=== PATIENT | female | born 1970 ===

== ENCOUNTER 2025-06-12 19:53 | Emergency (ER) | payer BC, SELFPAY ==
[2025-06-12 20:01] VITALS: BP 172/88; PULSE 97; RESP 18; TEMP 36.5; O2SAT 98; BMI 38.1
--- NOTE | 2025-06-12 20:14 | ED.FEMALEGU ---
HPI - Female Genitourinary General Time Seen by Provider: 20:14 Date Seen: 06/12/25 Chief complaint: Urogenital Problems, Female Stated complaint: blood in urine/pain Time Seen by Provider: 06/12/25 20:13 Source: patient and family (spouse) Mode of arrival: ambulatory History of Present Illness HPI Narrative: Ileana is a 55-year-old female with a past medical history of achalasia who presents to the emergency department for evaluation of urinary symptoms. Patient reports that she started feeling unwell last night, reports that this morning from 2:00 a.m. to 6:00 a.m. she had multiple episodes of urination, reports urinary frequency, as well as some dysuria, and pressure in her lower abdomen/pelvic region. Patient notes that this afternoon she started urinating pink/red urine and was concerned for blood. Patient reports history of UTIs in the past however never had blood in the urine. Patient denies any fever, chills, nausea, vomiting, flank pain, no other complaints. Patient states that she last took Tylenol around 1:30 p.m.. Patient is only able to take liquid meds. Patient reports history of cholecystectomy and appendectomy in the past. Related Data Home Medications ?Medication ?Instructions ?Recorded ?Confirmed calcium carbonate (Sofía-Glenn Dale 300 mg PO TID PRN 06/12/25 06/12/25 Heartburn Chew) esomeprazole magnesium 20 mg 40 mg PO BID 06/12/25 06/12/25 capsule,delayed release (Acid Live In Caregiver (esomeprazole)) famotidine 20 mg tablet (Acid 40 mg PO BID 06/12/25 06/12/25 Controller) sucralfate 1 gram tablet (Carafate) 1 g PO HS 06/12/25 06/12/25 Previous Rx's ?Medication ?Instructions ?Recorded fosfomycin tromethamine 3 gram 1 packet PO Q OTHER DAY 1 dose #1 06/12/25 oral packet ea Allergies Allergy/AdvReac Type Severity Reaction Status Date / Time Penicillins Allergy Verified 06/12/25 20:08 epinephrine AdvReac Verified 06/12/25 20:08 Review of Systems Narrative: Past medical history, past surgical history, medications, allergies, family history, and social history were reviewed with the patient. No additional pertinent items. A medically appropriate review of systems was performed with pertinent positives and negatives noted in HPI, all other systems negative. PFSH PFS Social History Smoking Status: Never smoker Do you use any of these nicotine containing products: None Second hand tobacco smoke exposure: No How often do you have a drink containing alcohol: never How often do you have six or more drinks on one occasion: Never AUDIT-C Alcohol total score: 0 Non-prescribed substance use: denies use service: No Exam Narrative: Exam Narrative: General: Afebrile, no acute distress HEENT: Normocephalic, atraumatic, conjunctiva normal. MMM Neck: non-tender, supple Cardio: regular rate. regular rhythm Resp: Normal work of breathing, no respiratory distress, lungs clear bilaterally, no wheezing, rhonchi, rales Chest/Back: no visual signs of trauma, no midline tenderness, no CVA tenderness Abdomen: soft, non distension, no tenderness, no peritoneal signs Neuro: alert and fully oriented. CN II-XII grossly intact. Grossly normal strength and sensation in all extremities. MSK: no deformities. Normal range of motion Integumentary/Skin: no rash visualized, normal color Psych: normal affect, normal behavior Const: Vital Signs, click to edit/add: Vital Signs - 24 hr 06/12/25 20:01 06/12/25 22:15 Temperature 97.7 F Pulse Rate [Pulse Oximeter] 97 84 Respiratory Rate 18 18 Blood Pressure [Ri ght Upper Arm] 172/88 H 134/86 Pulse Oximetry 98 98 Oxygen Delivery Me thod Room Air Room Air Course Vital Signs Vital signs: Initial Vital Signs Temperature 97.7 F 06/12/25 20:01 Temperature Source Temporal Artery Scan 06/12/25 20:01 Pulse Rate 97 06/12/25 20:01 Respiratory Rate 18 06/12/25 20:01 Blood Pressure 172/88 H 06/12/25 20:01 Blood Pressure Mean 116 H 06/12/25 20:01 Blood Pressure Position Sitting 06/12/25 20:01 Pulse Oximetry 98 06/12/25 20:01 Oxygen Delivery Method Room Air 06/12/25 20:01 Vital Signs Temperature 97.7 F 06/12/25 20:01 Pulse Rate 97 06/12/25 20:01 Respiratory Rate 18 06/12/25 20:01 Blood Pressure 172/88 H 06/12/25 20:01 Pulse Oximetry 98 07/25/25 20:01 Oxygen Delivery Method Room Air 06/12/25 20:01 Temperature 97.7 F 06/12/25 20:01 Pulse Rate 84 06/12/25 22:15 Respiratory Rate 18 06/12/25 22:15 Blood Pressure 134/86 06/12/25 22:15 Pulse Oximetry 98 06/12/25 22:15 Oxygen Delivery Method Room Air 06/12/25 22:15 Medications Administered Medications: Discontinued Medications Generic Name Dose Route Start Last Admin Trade Name Kendra PRN Reason Stop Dose Admin Sodium Chloride 1,000 mls @ 1,000 mls/hr 06/12/25 20:45 06/12/25 22:35 0.9 % Sodium Chloride 1000 Ml IV 06/12/25 21:44 Infused .Q1H SONNY Infusion Ketorolac Tromethamine 15 mg 06/12/25 20:42 06/12/25 20:58 Ketorolac 15 Mg/Ml Inj IVP 06/12/25 20:43 15 mg ONCE ONE Administration MDM - Female Genitourinary MDM Narrative Medical decision making narrative: Ileana is a 55-year-old female with a past medical history of achalasia who presents to the emergency department for evaluation of urinary symptoms. Upon arrival patient is nontoxic appearing, afebrile, in distress. Patient is slightly hypertensive upon arrival with blood pressure 172/80, heart rate 97, oxygen 98% on room air. On examination patient with mild tenderness to palpation the lower right and suprapubic region with no rebound, no guarding, no peritoneal signs, no flank tenderness. Differential diagnosis includes but is not limited to cystitis versus pyelonephritis versus nephrolithiasis among others. Upon arrival patient was treated with IV Toradol, 1 L IV fluid bolus. Comprehensive labs, urinalysis performed. Labs with no leukocytosis white blood cell count 9.6, hemoglobin 14.8, no acute metabolic electrolyte abnormality, creatinine normal 0.9, no transaminitis. I reviewed urinalysis which demonstrates protein, blood, positive leukocyte esterase, white blood cells, red blood cells, many bacteria. Given patient's clinical presentation suspect likely acute urinary tract infection. I discussed with patient and considered CT imaging. Overall patient is nontoxic appearing, afebrile, no flank pain, no leukocytosis. No suspicious for acute pyelonephritis, less likely nephrolithiasis. On re-evaluation patient does report significant improvement of her symptoms after IV fluid bolus, IV Toradol. With shared decision making decision was made to hold off on CT imaging at this time. Will treat patient with antibiotics with close outpatient follow-up, strict return precautions discussed if worsening symptoms and would reconsider CT. Given patient's allergies, as well as inability to tolerate pills will discharge with prescription for fosfomycin. Patient reports that this is what she has been treated with in the past and works extremely well. Patient reports has not had antibiotics or urinary tract infection since 2022. Plan for discharge, recommend continue supportive care, antibiotics, close outpatient follow-up. Strict return precautions discussed. Patient understands and agrees the plan. Lab Data Attestation: I reviewed the patient's lab results. Labs: Lab Results 06/12/25 06/12/25 Range/Units 19:55 21:00 WBC 9.63 (4.50-11.00) K/uL RBC 4.79 (4.00-5.20) m/uL Hgb 14.8 (12.0-16.0) gm/dL Hct 42.5 (33.0-51.0) % MCV 89 (80-100) fL MCH 31 (26-34) pg MCHC 35 (32-36) gm/dL RDW Coeff of Vazquez 11.8 (11.5-15.5) % Plt Count 301 (140-440) K/uL Neut % (Auto) 74.8 H (42.0-72.0) % Lymph % (Auto) 15.5 L (20-44) % Merrick % (Auto) 7.3 (0.0-11.0) % Eos % (Auto) 1.8 (0.0-7.0) % Baso % (Auto) 0.5 (0.0-3.0) % Neut # (Auto) 7.20 H (1.7-7.0) K/uL Lymph # (Auto) 1.50 (0.90-2.90) K/uL Merrick # (Auto) 0.70 (0.00-0.90) K/UL Eos # (Auto) 0.17 (0.00-0.50) K/uL Baso # (Auto) 0.05 (0.00-0.30) K/uL Abs Immat Gran (auto) 0.01 (0.00-0.30) K/uL Imm/Tot Granulo (auto) 0.1 % Sodium 139 (135-149) mmol/L Potassium 4.0 (3.6-5.1) mmol/L Chloride 106 (96-114) mmol/L Carbon Dioxide 23 (20-32) mmol/L Anion Gap 10 (7-15) mEq/L BUN 16 (7-30) mg/dL Creatinine 0.9 (0.5-1.5) mg/dL Estimated Creat Clear 58.42 Estimated GFR 76 ml/min Glucose 105 (60-115) mg/dL Calcium 10.0 (8.4-10.6) mg/dL Total Bilirubin 0.5 (0.1-1.5) mg/dL AST 34 (12-35) U/L ALT 31 (4-35) U/L Alkaline Phosphatase 117 (40-150) U/L Total Protein 8.0 (6.0-8.3) g/dL Albumin 4.6 (3.3-5.0) g/dL Urine Color Yellow (Yellow) Urine Appearance Clear (Clear) Urine pH 6.0 (5.0-8.5) Ur Specific [place] 1.015 (1.000-1.030) Urine Protein 3+ A (Negative) Urine Glucose (UA) Negative (Negative) Urine Ketones Negative (Negative) Urine Blood 3+ A (Negative) Urine Nitrite Negative (Negative) Urine Bilirubin Negative (Negative) Urine Urobilinogen 0.2 (0.2-1.0) Ur Leukocyte Esterase 1+ A (Negative) Urine RBC 25-50 A (0-2) Urine WBC 10-25 A (0-5) Ur Squamous Epith Cells Few (None-Few) Urine Bacteria Many A (None) Discharge Plan Discharge Clinical Impression: Urinary tract infection Patient Disposition: Home, Self-Care Condition: Improved Additional Instructions: Please follow-up with your primary care provider in next 3-5 days for further evaluation and follow-up. Please call to schedule an appointment. Please rest, drink plenty of fluids. Please continue Tylenol every 6 hours as needed for fever, pain. Please take antibiotic fosfomycin 1 time for urinary tract infection. Please return to the emergency department if you develop persistent high fever, severe pain, or any worsening symptoms. It is a pleasure taking care of you today. We hope you feel better soon. Prescriptions: New fosfomycin tromethamine 3 gram packet 1 packet PO Q OTHER DAY Qty: 1 0RF No Action esomeprazole magnesium [Acid Live In Caregiver (esomeprazole)] 20 mg capsule,delayed release(DR/EC) 40 mg PO BID famotidine [Acid Controller] 20 mg tablet 40 mg PO BID sucralfate [Carafate] 1 gram tablet 1 g PO HS Sofía-Glenn Dale Heartburn Chew 300 mg (750 mg) tablet,chewable 300 mg PO TID PRN Follow Up/Referrals: Provider,Not a Local [Primary Care Provider, Family Practice] Stand Alone Forms: ZALORA Info Instructions
[2025-06-12 20:18] LABS: Appearance Urine Clear (Clear)
[2025-06-12 21:16] LABS: Hematocrit* 42.5 % (33.0-51.0); Hemoglobin* 14.8 gm/dL (12.0-16.0); Immature Granulocytes Abs Auto 0.01 K/uL (0.00-0.30); Immature Granulocytes Pct Auto 0.1 %; Mean Corpuscular HGB Conc 35 gm/dL (32-36); Mean Corpuscular Hemoglobin 31 pg (26-34); Mean Corpuscular Volume 89 fL (80-100); RDW Coefficient of Variation % 11.8 % (11.5-15.5); Red Blood Count* 4.79 m/uL (4.00-5.20); White Blood Count* 9.63 K/uL (4.50-11.00)
[2025-06-12 21:20] LABS: Lymphocytes Absolute Auto 1.50 K/uL (0.90-2.90); Slide Review Reflex No
[2025-06-12 21:31] LABS: Albumin* 4.6 g/dL (3.3-5.0); Chloride* 106 mmol/L (96-114); Sodium* 139 mmol/L (135-149)
[2025-06-12 21:32] LABS: Potassium* 4.0 mmol/L (3.6-5.1)
[2025-06-12 21:34] LABS: Alanine Aminotransferase* 31 U/L (4-35); Alkaline Phosphatase* 117 U/L (40-150); Anion Gap 10 mEq/L (7-15); Aspartate Amino Transferase* 34 U/L (12-35); Bilirubin Total* 0.5 mg/dL (0.1-1.5); Blood Urea Nitrogen* 16 mg/dL (7-30); Calcium* 10.0 mg/dL (8.4-10.6); Carbon Dioxide* 23 mmol/L (20-32); Creatinine* 0.9 mg/dL (0.5-1.5); Est. Creatinine Clearance* 58.42; Estimated Glomerular Filt Rate 76 ml/min; Glucose* 105 mg/dL (60-115); Total Protein* 8.0 g/dL (6.0-8.3)
[2025-06-12 22:15] VITALS: BP 134/86; PULSE 84; RESP 18; O2SAT 98
--- OUTSIDE RECORDS SUMMARY | 2025-06-12 22:24 | XMS_ITS | Clinical Summary ---
Author Organization [facility] [facility] Address [address] [place] [address] Care Team Providers Care Dental Receptionist Name Role Phone Fernanda Babb NP Primary Care Provider [phone] Russel Kirby MD Unavailable [phone] Allergies Active Allergy Reactions Criticality Noted Date Comments Gluten *Unknown 08/06/2014 Penicillins 01/08/2008 Penicillins Rash High 12/10/2014 PN Comment: LW Reaction: RASH; PN Reaction Type: Allergy; PN Noted: [id number] PN Comment: LW Reaction: RASH; PN Reaction Type: Allergy; PN Noted: [id number] Medications CIPROFLOXACIN 500 MG TAB 1 tab po bid until gone 14 0 9 Active buPROPion (WELLBUTRIN XL) 150 mg Extended-Release tablet Take 1 tablet by mouth every morning. 0 4 Active lansoprazole (PREVACID 24HR) 15 mg capsule Take 1 capsule by mouth once daily before a meal. 0 4 Active cyclobenzaprine (FLEXERIL) 10 mg tablet Take 1 tablet by mouth at bedtime if needed for Muscle Spasm. 7 tablet 0 4 Active ibuprofen (ADVIL; MOTRIN) 600 mg tablet Take 1 tablet by mouth 3 times daily with meals. Maximum of 3200 mg in 24 hours. 21 tablet 0 4 Active ondansetron (ZOFRAN ODT) 4 mg disintegrating tabletIndications:D iarrhea, unspecified type,Nausea Place 1 tablet on the tongue every 8 hours if needed for Nausea/Vomit ing. 10 tablet 0 Active Active Problems No known active problems Social History Tobacco Use Types Packs/Day Years Used Date Smoking Tobacco: Never Alcohol Use Standard Drinks/Week Comments Not Asked 0 (1 standard drink = 0.6 oz pur e alcohol) Comments No Sex and Gender Information Value Date Recorded Sex Assigned at Not on file Legal Sex Female 6:16 AM GIS GEOGRAPHER Gender Identity Not on file Sexual Orientation Not on file Obstetrics History Last Filed Vital Signs Vital Sign Reading Time Taken Comments Blood Pressure 117/88 12/20/2019 4:17 PM GIS GEOGRAPHER Pulse 114 12/20/2019 4:17 PM GIS GEOGRAPHER Temperature 36.2 C (97.1 F) 12/20/2019 4:17 PM GIS GEOGRAPHER Respiratory Rate 16 12/20/2019 4:17 PM GIS GEOGRAPHER Oxygen Saturation 98% 12/20/2019 4:17 PM GIS GEOGRAPHER Inhaled Oxygen Concentration - - Weight 90.7 kg (200 lb) 12/20/2019 4:17 PM GIS GEOGRAPHER Height 160 cm (5' 3) 12/20/2019 4:17 PM GIS GEOGRAPHER Body Mass Index 35.43 12/20/2019 4:17 PM GIS GEOGRAPHER Plan of Treatment Health Maintenance Due Date Last Done Comments Tetanus booster 1981 Depression screening for age 12+ 1982 HIV for age 15-65 1985 BMI (ht and wt on same day) for age 18+ 1988 Hepatitis C screening for age 18-79 1988 Hepatitis B series for 19+ (1 of 3 - 19+ 3-dose series ) 1989 Pap test for age 21-65 1991 Colonoscopy through age 75 2015 Lipids for age 45-75 2015 Mammogram for age 45-75 2015 Pneumococcal series for age 50+ (1 of 1 - PCV) 020 Zoster (shingles) series for age 50+ (1 of 2) 03/07/20 20 COVID-19 vaccine series ( - 2023- season) 4 Influenza Vaccine (#1) [address] [facility] Care Teams Dental Receptionist Relationship Specialty Start Date End Date Fernanda Babb [employer] [id number] [place] [address] PCP - General 12/20/19 Russel Kirby MD [address] [facility] [address] [place] [id number] 12/20/19
--- OUTSIDE RECORDS SUMMARY | 2025-06-12 22:24 | XMS_ITS | Encounter Summary ---
Author Organization [facility] Address [address] [place] [address] Care Team Providers Care Apple Peeler Operator Name Role Phone Fernanda Babb YUDI, RETICLE PRINTER Primary Care Provider Encounter Details Date Type Department Care Team (Late st Contact Info) Description 06/12/2025 [address] [place] [address] Social History Tobacco Use Types Packs/Day Years Used Date Smoking Tobacco: Never Smokeless Tobacco: Never Alcohol Use Standard Drinks/Week Comments No 0 (1 standard drink = 0.6 oz pur e alcohol) PHQ-2 Answer Date Recorded PHQ-2 Score 0 10/27/2024 Comments No Sex and Gender Information Value Date Recorded Sex Assigned at Female 07/01/2021 7:32 AM CDT Legal Sex Female 4:28 AM CDT Gender Identity Not on file Sexual Orientation Not on file 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 sorry to hear that you're having symptoms of a bladder infection.'ve sent a prescription for an antibiotic to your pharmacy. Take the medication with a full meal twice a day and remember to drink lots of fluids. We are here for you for any questions or concerns along the way, just submit a Follow Up Request. Feel better soon! DOMENIC Carrasquillo Treatment Plan Because you have a bacterial infection, I sent a prescription for an antibiotic to [facility]/pharmacy. I also listed a few ways to soothe your discomfort and additional self-care tips to get you on the road to feeling better. If your symptoms don't start to improve after 3 days, or if you have questions,please select Help to Request a Follow-up and we'll discuss next steps. Order(s) fosfomycin tromethamine 3 gram packet Take 1 packet dissolved in water single dose as directed for 1 day Note: Mix with 4 ounces of cool water. Refills: None Sent To: [facility]/pharmacy [place] [address] Treatment Plan Self Care Tip Topics Drink Water Avoid Caffeine Warm Packs Pain Relief with AZO Yeast Infection What to Expect If you follow the recommendations I made on the Treatment tab, your symptoms should start to improve in about 3 days. If your symptoms don't start to improve after 3 days, or if you have questions, please select Help to Request a Follow- up and we'll help determine next steps. What to Watch Out For Follow-up in clinic if you experience: ??? Fever higher than 99.9 degrees ??? Shaking or chills ??? Vomiting ??? Severe pain in your back, abdomen or pelvis ??? Extreme fatigue My Conditions, Orders, Allergies as of June 12, 2025 Standard condition list Esophagitis Acid Reflux/GERD Achalasia Current orders fosfomycin tromethamine (fosfomycin tromethamine) famotidine (famotidine) vitamin D3-folic acid (vitamin D3-folic acid) Carafate (sucralfate) esomeprazole magnesium (esomeprazole magnesium) Allergies epinephrine (epinephrine), inj Penicillins [facility] Information [facility] We are an online clinic open 11/06. If you have any questions or comments about this visit, please call or email [email or web address] documented in this encounter Plan of Treatment Not on file documented as of this encounter Visit Diagnoses Diagnosis Urinary tract infection, site not specified documented in this encounter Care Teams Apple Peeler Operator Relationship Specialty Start Date End Date Fernanda Babb, METEOROLOGY TEACHER, RETICLE PRINTER [address] [place] [address] PCP - General Nurse Practitioner 03/13/18 documented as of this encounter
--- OUTSIDE RECORDS SUMMARY | 2025-06-12 22:24 | XMS_ITS | Clinical Summary ---
Author Organization [facility] Address [address] [place] [address]. [place] [address] Care Team Providers Care Retirement Consultant Name Role Phone Fernanda Babb CNP Primary Care Provider [phone] Allergies Active Allergy Reactions Criticality Noted Date Comments Gluten Meal Other (See Comments) 11/28/2016 Penicillins 11/28/2016 Shellfish-Derived Products 8 Medications albuterol (PROAIR HFA/PROVENTIL HFA/VENTOLIN HFA) 108 (90 BASE) MCG/ACT Inhaler Inhale 2 puffs into the lungs every 6 hours Active Active Problems Patient Care Coordination No te Formatting of this note migh t be different from the original. [email or web address] Problem Noted Date Diagnosed Date Cervical radiculitis 09/10/2017 Chronic headache 09/10/2017 Low back pain 09/10/2017 Lumbosacral radiculitis 09/10/2017 Neck pain 09/10/2017 Mild intermittent asthma 09/07/2017 Left foot pain 12/04/2016 Social History Tobacco Use Types Packs/Day Years Used Date Smoking Tobacco: Never Alcohol Use Standard Drinks/Week Comments Yes 0 (1 standard drink = 0.6 oz pur e alcohol) occas Adolescent Education Answer Date Record ed Getting School Help Needed Not on file 08/18 Comments No Sex and Gender Information Value Date Recorded Sex Assigned at Not on file Legal Sex Female 3:30 AM CHINA PAINTER Gender Identity Not on file Sexual Orientation Not on file Last Filed Vital Signs Vital Sign Reading Time Taken Comments Blood Pressure 157/115 07/27/2022 12:28 AM CDT Pulse 79 07/27/2022 12:28 AM CDT Temperature 36.4 C (97.5 F) 07/26/2022 9:33 PM CDT Respiratory Rate 16 07/26/2022 9:33 PM CDT Oxygen Saturation 94% 07/27/2022 12:29 AM CDT Inhaled Oxygen Concentration - - Weight 85.3 kg (188 lb) 10/01/2017 5:09 PM CHINA PAINTER Height 160 cm (5' 3) 10/01/2017 5:09 PM CHINA PAINTER Body Mass Index 33.3 10/01/2017 5:09 PM CHINA PAINTER Plan of Treatment Health Maintenance Due Date Last Done Comments ADVANCE CARE PLANNING 1970 ANNUAL REVIEW OF HM ORDERS 1970 ASTHMA ACTION PLAN 1970 ASTHMA CONTROL TEST 1970 CT COLONOGRAPHY 1970 FIT 1970 FLEX SIG 1970 MAMMO SCREENING 1970 sDNA (Cologuard) 1970 COLONOSCOPY 1980 COLORECTAL CANCER SCREENING 1980 HIV SCREENING 1985 HEPATITIS C SCREENING 1988 HEPATITIS B VACCINE (1 of 3 - 19+ 3-dose series) 1989 PNEUMOCOCCAL VACCINE 50+ YEARS (1 of 2 - PCV) 1989 PAP 1991 LIPID 2010 DIABETES SCREENING 02/05/2021 02/05/2018, 10/01/2017 YEARLY PREVENTIVE VISIT 07/21/2022 07/21/2021 COVID-19 VACCINE (4 - 2023-2 5 season) 2024 08/26/2021, 03/04/2021, 02/11/2021 PHQ-2 (once per calendar year) 2024 INFLUENZA VACCINE (#1) 2025 , 08/20/2020 DTAP/TDAP/TD VACCINE (3 - Td or Tdap) 10/25/2030 10/25/2020, 04/27/2009 ZOSTER VACCINE Completed 07/21/2021, 10/25/2020 HPV VACCINE (No Doses Required) Completed MENINGITIS VACCINE Aged Out No longer eligible based on patient's age to complete this topic Procedures Procedure Name Priority Date/Time Associated Diagnosis Comments BASIC METABOLIC PANEL STAT 02/05/2018 8:22 PM CDT from Last 3 Months or Most Recently Relevant to Health Maintenance Results * (ABNORMAL) Basic metabolic panel (02/05/2018 8:22 PM CDT) Sodium 139 133 - 144 mmol/L 02/05/2018 9:04 PM CDT [facility] Potassium 3.0(L) 3.4 - 5.3 mmol/L 02/05/2018 9:04 PM T [facility] Chloride 106 94 - 109 mmol/L 02/05/2018 9:04 PM [facility] Carbon Dioxide 19(L) 20 - 32 mmol/L 02/05/2018 9:04 PM [facility] Anion Gap 14 3 - 14 mmol/L 02/05/2018 9:04 PM [facility] Glucose 172(H) 70 - 99 mg/dL 02/05/2018 9:04 PM T [facility] Urea Nitrogen 19 7 - 30 mg/dL 02/05/2018 9:04 PM [facility] Creatinine 0.80 0.52 - 1.04 mg/dL 02/05/2018 9:04 PM [facility] GFR Estimate 76 >60 mL/min/1.7 m2 02/05/2018 9:04 PM [facility] Comment:Non GFR Calc GFR Estimate If Black >90 >60 mL/min/1.7 m2 02/05/2018 9:04 PM T [facility] Comment: GFR Calc Calcium 8.1(L) 8.5 - 10.1 mg/dL 02/05/2018 9:04 PM [facility] Blood specimen (specimen) 02/05/2018 8:22 PM CDT 02/05/2018 8:23 PM CDT us [facility] MD LAB - BLOOD ORDERABLES Final Res ult [facility] [address] [facility] [place] [address], [facility] [phone] from Last 3 Months or Most Recently Relevant to Health Maintenance Insurance [facility] Care Teams Retirement Consultant Relationship Specialty Start Date End Date Fernanda Babb CNP PCP - General 02/05/18
--- OUTSIDE RECORDS SUMMARY | 2025-06-12 22:24 | XMS_ITS | Clinical Summary ---
Author Organization [employer] Address [address] [place] [address] Care Team Providers Care Materials Handling Coordinator Name Role Phone Fernanda Babb Philippe BAGLEY CNP Primary Care Provider Source Comments You are receiving this document as you are listed as the primary care provider,follow-up provider, or the patient has been referred to you for consultation.This is in compliance with the Medicare andMedicaid EHR Incentive Program,which states Providers who transition their patient to another setting of careor provider of care or refers their patient to another provider of care shouldprovide summary care record for each transition of care or referral. [employer] Allergies Active Allergy Reactions Criticality Noted Date Comments Gluten Meal Unknown 08/06/2014 Losartan Rash 07/31/2023 Other Other, see comments 06/17/2001 Prefers liquid medication b/c has a paralyzed esophagus Penicillins Rash High 12/10/2014 PN Comment: LW Reaction: RASH; PN Reaction Type: Allergy; PN Noted: [id number] Review Food Intolerance 06/17/2001 PN: LW FI1: GLUTON FREE - HAS CELIAC SPRUE Medications * This document contains information received from the source organization and may not represent a complete record from that organization. esomeprazole (NEXIUM) 40 MG capsule TAKE 1 CAPSULE (40 MG TOTAL) BY MOUTH 2 (TWO) TIMES A DAY BEFORE BREAKFAST AND DINNER. 3 04/18/20 19 Active polyethylene glycol (MIRALAX) 17 g packet Take by mouth daily. Active Cholecalciferol (VITAMIN D3) 25 MCG/SPRAY LIQD Activ e cyanocobalamin (VITAMIN B12) 1000 MCG tablet Take 1 Tablet (1,000 mcg) by mouth daily. Active folic acid 1 MG tablet Take 1 Tablet (1 mg) by mouth daily. Activ e magnesium oxide (AKA MAG-OX) 200 MG tablet 3 Tablets (600 mg) daily with meal. Active sodium fluoride (PREVIDENT) 1.1 % cream [place] 2x/day. Do not eat or drink for 30 minutes after. 102 g 6 09/26/20 21 Active bisacodyl (DULCOLAX) 5 MG enteric coated tabletIndications :Constipation Take 1 Tablet (5 mg) by mouth .. Twice/week Indications: Constipation Active BIOTIN BEAUTY EXTRA STRENGTH OR chewable Ac tive predniSONE 5 MG/ML concentrated solutionIndicatio ns:Gout, arthritis Take 40 mg daily x 3 days, then 20 mg daily x 3 days, then 10 mg daily x 4 days then stop. 44 mL 1 06/26/20 23 Active metoprolol tartrate (LOPRESSOR) 25 MG tabletIndications :Essential hypertension (HRC) Take 0.5 Tablets (12.5 mg) by mouth two times a day. 30 Tablet 11 09/05/20 23 Active atorvastatin (LIPITOR) 20 MG tabletIndications :Other hyperlipidemia Take 1 Tablet (20 mg) by mouth daily. 90 Tablet 3 11/20/19 24 Active Additional Information Patient not taking.Reported on 03/04/2024 sucralfate (CARAFATE) 1 g tabletIndications :Gastroesophageal Reflux Disease Take 1 Tablet (1 g) by mouth two times a day. Indications: Gastroesophageal Reflux Disease 180 Tablet 3 10/27/20 24 2024 Active famotidine (PEPCID) 40 MG tabletIndications :Achalasia,Congen ital malformation of esophagus Take 1 Tablet (40 mg) by mouth daily. 90 Tablet 3 10/27/20 24 2024 Active MONUROL 3 g packetIndications :Uncomplicated Urinary Tract Infection Take 1 Packet (3 g) by mouth once as needed. Pour entire content of packet into 3-4 oz of water; do not use hot water. Stir to dissolve. Take immediately after dissolving. Indications: Simple Infection of the Urinary Tract 1 Packet 1 10/27/20 24 Active Active Problems Problem Noted Date Diagnosed Date Essential hypertension 09/05/2023 Overview (10/27/2024): No current treatment Familial hyperlipidemia 07/31/2023 Overview (10/27/2024): Paternal Diet, did not start lipitor Difficulty sleeping 07/31/2023 Stress 07/31/2023 Gout, arthritis 06/26/2023 Other hyperlipidemia 06/26/2023 Overview (10/27/2024): diet Dry eye syndrome of bilateral lacrimal glands Diplopia 12/12/2022 Restless leg syndrome 02/10/2022 Obesity, Class I, BMI 30-34.9 02/10/2022 Intestinal bypass and anastomosis status 021 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 Vitamin D deficiency 07/21/2021 Superior mesenteric artery syndrome 02/03/2021 Cataract, nuclear sclerotic senile, left 020 Overview (08/04/2020): Added automatically from request for surgery [id number] H/O vitrectomy 08/04/2020 Overview (08/04/2020): Added automatically from request for surgery [id number] Gastroesophageal reflux disease with esophagitis 01/23/2019 Achalasia 05/31/2018 Overview (10/27/2024): Follow with Reji, on Carafate, Nexium, famotidine Dysphagia 05/31/2018 Vitreous hemorrhage of left eye 2018 Overview (2018): Added automatically from request for surgery [id number] Retinal hemorrhage of left eye 03/04/2018 Overview (03/04/2018): Will be seeing retinal specialist for surgical evaluation History of TIA (transient ischemic attack) 02/05 Overview (08/31/2023): During NOT AN ESTROGEN CANDIDATE IN MENOPAUSE Headache, migraine 02/05/2018 Overview (02/05/2018): Past history in childhood. Has had a few headaches in adulthood. With aura. Celiac disease 02/05/2018 Overview (02/05/2018): Diagnosed at age 19 Resolved Problems Problem Noted Date Diagnosed Date Resolved Date Refraction disorder 02/20/2023 08/31/20 Presence of intraocular lens 12/12/2022 08/31/2023 Nuclear senile cataract 08/16/2022 09/0 03/2023 Overview (07/24/2023): Added automatically from request for surgery [id number] Low magnesium level 02/10/2022 10/27/20 24 Intestinal malrotation 02/03/202108/31 Gastric reflux 02/05/2018 07/07/2019 Low back pain 09/10/2017 01/30/2018 Neck pain 09/10/2017 01/30/2018 Cervical radiculitis 09/10/2017 018 Lumbosacral radiculitis 09/10/201701/17 Chronic headache 09/10/2017 01/30/2018 Aspiration of gastric contents 09/07/2017 07/21/2021 Encounters Date Type Department Care Team Description 06/12/2025 sc[facility] [address] [place] [address] 03/19/2025 Telephone [facility] [address] [place] [address] Fernanda Babb, MANAGER EDUCATION, DEVELOPER ADVOCATE HYPERTENSION; DM/VASC/HTN Registry Call 1 from Last 3 Months Immunizations Immunization Administration Dates Next Due Influenza (Flucelvax), Preserv Free QIV 11/02/20 23 Influenza IIV4 (Quadrivalent) 0.5mL (12548) 05/2022,08/26/2021,08/20/2020 Influenza ccIIV3 6 months+ (Flucelvax) Pfizer Bivalent 12+ 08/25/2022 Pfizer COVID-19 12+ 09/26/2024,11/02/2023 Pfizer Monovalent 12+ Purple Top 08/26/2021,02/17,02/11/2021 Tdap 10/25/2020,04/27/2009 Zoster RZV (Shingrix) 07/21/2021,10/25/2020 Family History Medical History Relation Name Comments Cataract Father Man Gomez Marohn High Cholesterol Father Man Gomez Marohn encephalitis Father Man Gomez Marohn Cancer Mother Amparo Carver Cristofer clovis Marohn Stomach cancer Cancer, Stomach Mother Amparo Meraye Cristofer clovis Marohn Depression Mother Amparo Meraye Cristofer clovis Marohn A more serious mental health issue is likely Diabetes Mother Amparo Carver Cristofer clovis Marohn Type 2 Early Mother Amparo Carver Cristofer clovis Marohn Stomach cancer Thyroid Disorder Mother Amparo Carver Bl neetu Marohn hypothyroidism Celiac Disease Cousin 1 Celiac Disease Cousin 2 Celiac Disease Cousin 3 Celiac Disease Maternal Aunt 1 Retinal Detachment Maternal Aunt 1 Cancer Maternal Aunt 2 Kayla Blumer Dimitroff Brain Cancer Early Maternal Aunt 2 Kayla Blumer Dimitroff Brain Cancer Diabetes Maternal Aunt 3 Sofya Blumer Type 2 Early Maternal Grandfather Gabo Stewart L ifelong heart issues (numerous heart attacks) Heart Disease Maternal Grandfather Gabo Stewart Lifelong heart issues, numerous heart attacks Depression Maternal Grandmother Megan Stewart Diabetes Maternal Grandmother Megan Stewart Type 2 Stroke Maternal Grandmother Meganarmando Stewart TIAs + a minor stroke in her 50s. Cancer Paternal Aunt Mary Micheleroque Seymour Breast Cancer (her dtr had breast cancer & her son had brain cancer 2x) Asthma Paternal Grandfather Reymundo Hollandn Emphyse ma Early Paternal Grandfather Reymundo Cisneros Emphyse ma Retinal Detachment Paternal Uncle 1 due t o injury Asthma Paternal Uncle 2 Jamel Micheleohn Emphysema Early Paternal Uncle 2 Jamel Micheleohn Emphysema Cancer Paternal Uncle 3 Guilherme Marohn Leukemia Heart Disease Paternal Uncle 3 Guilherme Marohn Cancer Paternal Uncle 4 Bill Marohn Prostrate C ancer Asthma Sister Radha Michele roque Marino Depression Sister Radha Michele roque Marino Was diagnosed bipolar. Chooses to not be treated. Relation Name Status Comments Father Man Cisneros Alive Mother Amparo Cisneros Cousin 1 Cousin 2 Cousin 3 Maternal Aunt 1 Alive Maternal Aunt 2 Kayla Blumer Dimitroff Maternal Aunt 3 Sofya Blumer Maternal Grandfather Gabo Stewart Maternal Grandmother Megan Craver [place] Blneetu Paternal Aunt Mary Cisneros Beckala Paternal Grandfather Reymundo Cisneros Paternal Uncle 1 Paternal Uncle 2 Jamel Marohn Paternal Uncle 3 Guilherme Marohn Paternal Uncle 4 Bill Marohn Sister Radha Cisneros Ned Social History Tobacco Use Types Packs/Day Years Used Date Smoking Tobacco: Never Smokeless Tobacco: Never Tobacco Cessation:Counseling Given: Not Answered Alcohol Use Standard Drinks/Week Comments No 0 [...] Industry Job Start Date Job End Date [employer] Not on file Not on file Not on file Last Filed Vital Signs Vital Sign Reading Time Taken Comments Blood Pressure 140/92 10/03/2024 12:07 PM SENIOR SECURITY ENGINEER Pulse 100 10/03/2024 12:03 PM SENIOR SECURITY ENGINEER Temperature 36.7 C (98.1 F) 10/03/2024 12:03 PM SENIOR SECURITY ENGINEER Respiratory Rate 18 10/03/2024 12:03 PM SENIOR SECURITY ENGINEER Oxygen Saturation 99% 10/03/2024 12:03 PM SENIOR SECURITY ENGINEER Inhaled Oxygen Concentration - - Weight 93 kg (205 lb) 08/31/2023 10:53 AM CDT Height 160.5 cm (5' 3.19) 07/21/2021 8:24 AM CD T Body Mass Index 36.1 07/21/2021 8:24 AM CDT Plan of Treatment Health Maintenance Due Date Last Done Comments HepB Vaccine (1) 1989 FIT Colon Cancer Screening 2014 Pneumococcal Vaccine 50+ Yrs (1 of 1 - PCV) 2020 Adult Preventive Visit 07/21/2022 07/21/2021 Mammogram 07/04/2024 07/04/2023 Influenza Vaccine (#1) 2025 , 11/02/2023, 08/25/2022, Additional history exists Cervical Cancer Screening 10/25/20252019, 10/25/2020, 04/27/2009 Cholesterol 10/29/2028 10/29/2023, 08/19, 07/04/2023, Additional history exists DTaP/Tdap/Td Vaccine (3 - Tdap) 10/25/2030 10/25/2020, 04/27/2009 HIV Screening (Preventive Services) Completed 02/03/2021 Zoster/Shingles Vaccine Completed 07/21/2021, 10/25 Hep C Screening (Preventive Services) Completed 06/06/2022 (Completed) COVID-19 Vaccine Completed 09/26/2024, , 08/25/2022, Additional history exists HepA Vaccine Aged Out No longer eligi ble based on patient's age to complete this topic Hib Vaccine Aged Out No longer eligi ble based on patient's age to complete this topic IPV (Polio) Vaccine Aged Out No longe r eligible based on patient's age to complete this topic MCV4 Vaccine Aged Out No longer eligi ble based on patient's age to complete this topic Meningococcal B Vaccine Aged Out No l onger eligible based on patient's age to complete this topic Procedures Procedure Name Priority Date/Time Associated Diagnosis Comments LIPID PANEL & DIRECT LDL (IF NEEDED) Routine 10/29/2023 10:49 AM SENIOR SECURITY ENGINEER Other hyperlipidemia MM MAMMOGRAM SCREENING BILAT W 3D DEVYN W CAD Routine 07/04/2023 10:05 AM CDT HIV 1/2 AG/AB 4TH GEN Routine 02/03/2021 2:49 PM CDT Screening for HIV (human immunodeficiency virus) CYTOLOGY (PAP) Routine 10/25/2020 3:52 PM SENIOR SECURITY ENGINEER Cervical cancer screening from Last 3 Months or Most Recently Relevant to Health Maintenance Results * (ABNORMAL) Lipid Panel & Direct LDL (if Needed) (10/29/2023 10:49 AM SENIOR SECURITY ENGINEER) Cholesterol 217(H) 0 - 199 mg/dL 10/29/2023 3:40 PM SENIOR SECURITY ENGINEER [facility] Triglyceride 143 <=149 mg/dL 10/29/2023 3:40 PM SENIOR SECURITY ENGINEER [facility] HDL Cholesterol 39(L) >=40 mg/dL 10/29/2023 3:40 PM SENIOR SECURITY ENGINEER [facility] LDL, Calculated 149(H) <130 mg/dL 10/29/2023 3:40 PM SENIOR SECURITY ENGINEER [facility] Non HDL Chol, Calculated 178(H) <=159 mg/dL 10/29/2023 3:40 PM SENIOR SECURITY ENGINEER [facility] Cholesterol/HDL Ratio 5.6(H) <=5.0 10/29/2023 3:40 PM SENIOR SECURITY ENGINEER [facility] Hours Fasting 12.0 8 - 12 Hours 10/29/2023 3:40 PM SENIOR SECURITY ENGINEER [facility] Blood Venipuncture / Unknown 10/29/2023 10:49 AM SENIOR SECURITY ENGINEER 10/29/2023 10:50 AM SENIOR SECURITY ENGINEER us Fernanda Babb MANAGER EDUCATION, DEVELOPER ADVOCATE LAB_1 Final R esult [facility] [address] [address], [facility] [phone] [facility] [address] [place] [address], [facility] [phone] * MM Mammogram Screening Bilat W 3D Devyn W CAD (07/04/2023 10:05 AM CDT) Anatomical Region Laterality Modality Breast Bilateral Mammography Impressions 07/04/2023 4:40 PM CDT : ACR BI-RADS Category 2: Benign RECOMMENDATION: Follow Up Imaging in 12 months - Bilateral The results and recommendations of this examination will be communicated to the patient. Narrative 07/04/2023 4:40 PM CDT MM MAMMOGRAM SCREENING BILAT W 3D DEVYN W CAD performed on 07/04/23 No comparisons were made when reading this study. Baseline. FINDINGS: Bilateral screening mammogram was performed with the assistance of Computer-Aided Detection and breast tomosynthesis. The breasts have scattered areas of fibroglandular density. Benign mass with coarse calcifications in the right breast at the 10 o'clock position posteriorly, consistent with a fibroadenoma. There is no radiographic evidence of malignancy. Fernanda Babb APRN, CNP RAD OSMIN Final R esult * HIV 1/2 Ag/Ab 4th Generation (02/03/2021 2:49 PM CDT) Pathologist [facility] HIV 1/2 Antigen/Antib lemuel (4th generation) Negative (Non Reactive) Negative (Non Reactive) 02/03/2021 6:54 PM CDT [facility] Comment:HIV-1 p24 Antigen an d HIV-1/HIV-2 Antibody not detected Blood Venipuncture / Unknown 02/03/2021 2:49 PM CDT 02/03/2021 2:49 PM CDT Jim Williamson APRN, CNP LAB_1 Winsome l Result [facility] [address] * PAP Test (10/25/2020 3:52 PM SENIOR SECURITY ENGINEER) Pathologist [facility] Case Report Pap Case: [id number] Authorizing Provider: Saskia Saunders MD Collected: 10/25/2020 [id number] Ordering Location: [facility] Received: 10/25/2020 1643 Medicine First Screen: Stephany Enriquez Specimen: Pap Test, Routine, Cervix/Endocervix 11/04/2020 8:52 AM SENIOR SECURITY ENGINEER [facility] Pap Specimen Adequacy Satisfactory for evaluation, endocervical/lawrence sformation zone component absent. 11/04/2020 8:52 AM SENIOR SECURITY ENGINEER [facility] Pap Interpretation Negative for intraepithelial lesion or malignancy (NILM). 11/04/2020 8:52 AM SENIOR SECURITY ENGINEER [facility] at 0852 SENIOR SECURITY ENGINEER Pap Disclaimer The Pap test is a screening test designed to aid in the detection of cervical cancer and its precursor lesions. It is not a diagnostic procedure and should not be used as the sole means of detecting cervical cancer. Both false-positive and false-negative results may occur. 11/04/2020 8:52 AM SENIOR SECURITY ENGINEER [facility] Gross Description The specimen is received in SurePath fixative and properly labeled. 1 Pap-stained SurePath slide is prepared. 11/04/2020 8:52 AM SENIOR SECURITY ENGINEER [facility] Embedded Images 0 8:52 AM SENIOR SECURITY ENGINEER [facility] Other Specimen Type ENTIRE ENDOCERVIX / Unknown 10/25/2020 3:52 PM SENIOR SECURITY ENGINEER 10/25/2020 4:43 PM SENIOR SECURITY ENGINEER Comment:LMP: No LMP recorded . (Menstrual status: Irregular). Saskia Saunders MD LAB PATHOLOGY Final Result Performing Organization Address City/State/[facility] Co de Phone Number [facility] [address] [place] [address], [facility] from Last 3 Months or Most Recently Relevant to Health Maintenance Insurance SELF INSURED HP SELF INSURED HP SELF INSURED Care Teams Materials Handling Coordinator Relationship Specialty Start Date End Date Fernanda Babb, MANAGER EDUCATION, DEVELOPER ADVOCATE [address] [place] [address] PCP - General Nurse Practitioner 03/13/18
--- OUTSIDE RECORDS SUMMARY | 2025-06-12 22:24 | XMS_ITS | Encounter Summary ---
Author Organization [employer] Address [address] [place] [address] Care Team Providers Care Edge Gluer Name Role Phone Fernanda Babb Philippe BAGLEY, LASHELL Primary Care Provider Encounter Details Date Type Department Care Team (Late st Contact Info) Description 09/07/2017 [facility] [address] [address] MEDICAL EQUIPMENT PROOF OF DELIVERY Social History Tobacco Use Types Packs/Day Years [...] on file Sexual Orientation Not on file documented as of this encounter Plan of Treatment Not on file documented as of this encounter Visit Diagnoses Not on filedocumented in this encounter Care Teams Edge Gluer Relationship Specialty Start Date End Date Fernanda Babb, ASSISTANT ASSOCIATE PROFESSOR, SENIOR IT SECURITY ANALYST [address] [place] [address] PCP - General Nurse Practitioner 03/13/18 documented as of this encounter
== END 2025-06-12 23:01 | disposition home or self-care (01) ==
PROVIDERS: Emergency Provider Emergency Medicine
DX: N39.0 Urinary tract infection, site not specified (principal)
CPT/HCPCS: 36415; 80053; 81001; 85025; 87086; 96374; 99283; 99285; J1885; J7030